=== PATIENT | male | born 1990 | race African-American/Black ===

== ENCOUNTER 2016-07-27 12:30 | Emergency (ER) | payer OTHER ==
[2016-07-31 08:19] LABS: CHLAMYDIA TRACH Not Detected (Not Detected); N GONOR Not Detected (Not Detected)
== END 2016-07-27 14:32 | disposition home or self-care (01) ==
LOC: CFTX 12:30 → CED 12:30 → CFTX 13:30
PROVIDERS: Student in an Organized Health Care Education/Training Program
DX: A64 Unspecified sexually transmitted disease (principal); M79.1 Myalgia
CPT/HCPCS: 87491; 87591; 96372; 99283; J0696